=== PATIENT | female | born 1980 | race Two or more races ===

== ENCOUNTER 2020-03-17 06:30 | Inpatient (IN) | payer OTHER ==
[~2020-03-17] VITALS: Ht 160 cm; Wt 65.3 kg
[2020-03-17] MEDS ORDERED: PRENATAL TABLE1 EAC1 PO (06:42)
== END 2020-03-19 10:30 | disposition home or self-care (01) | DRG 807 ==
LOC: LDR 06:30 → OB/GYN 15:30
PROVIDERS: ADMIT Obstetrics & Gynecology
PROC: 10E0XZZ Delivery of Products of Conception, External Approach (ICD-10-PCS; principal; 2020-03-17)
PROC: 0KQM0ZZ Repair Perineum Muscle, Open Approach (ICD-10-PCS; 2020-03-17)
PROC: 3E033VJ Introduction of Other Hormone into Peripheral Vein, Percutaneous Approach (ICD-10-PCS; 2020-03-17)
PROC: 10907ZC Drainage of Amniotic Fluid, Therapeutic from Products of Conception, Via Natural or Artificial Opening (ICD-10-PCS; 2020-03-17)
PROC: 4A1HXCZ Monitoring of Products of Conception, Cardiac Rate, External Approach (ICD-10-PCS; 2020-03-17)
DX: O70.1 Second degree perineal laceration during delivery (principal); Z37.0 Single live birth; Z3A.39 39 weeks gestation of pregnancy